=== PATIENT | female | born 1995 | race Caucasian/White ===

== ENCOUNTER 2023-09-23 04:18 | Inpatient (IN) ==
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
[2023-09-23] MEDS: ALBUT/IPRATROP 3MG/0.5MG NEB 3 ML VIAL NEB STA (05:10)
[2023-09-23] MEDS: methylPREDNISolone 125 MG/2 ML VIAL IV STA (05:21)
[2023-09-23] MEDS: cefTRIAXone SODIUM 2,000 MG/50 ML BAG IV STA (05:21)
[2023-09-23 05:39] LABS: Basophils # (auto) 0.02 K/uL (0.00-0.20); Basophils % (auto) 0.3 %; Eosinophils # (auto) 0.35 K/uL (0.00-0.50); Eosinophils % (auto) 4.7 %; Hematocrit (blood only) 32.6 % (37.0-47.0); Hemoglobin 9.2 g/dl (12.0-16.0); Immature Granulocytes # (auto) 0.01 K/uL (0.01-0.20); Immature Granulocytes % (auto) 0.1 %; Lymphocytes # (auto) 1.27 K/uL (1.20-3.40); Lymphocytes % (auto) 17.2 %; Mean Corpuscular Hemoglobin 21.1 pg (25.0-34.0); Mean Corpuscular Hgb Conc 28.2 g/dL (32.0-36.0); Mean Corpuscular Volume 74.8 fL (80.0-100.0); Mean Platelet Volume 9.6 fL (9.4-12.4); Monocytes # (auto) 0.76 K/uL (0.11-0.59); Monocytes % (auto) 10.3 %; Neutrophils # (auto) 4.98 K/uL (1.40-6.50); Neutrophils % (auto) 67.4 %; Platelet Count 253 K/uL (130-400); RDW Coefficient of Variation 26.5 % (11.5-14.5); RDW Standard Deviation 69.5 fL (36.4-46.3); Red Blood Count 4.36 M/uL (4.20-5.40); White Blood Count 7.39 K/ul (4.8-10.8)
[2023-09-23 05:52] LABS: BUN Creatinine Ratio 16.9 (10-20); Calcium 9.2 mg/dl (8.6-10.3); Creatinine Clr Calc Pharmacy 201.7 ml/min; Est GFR (African American) 136.2 ml/min; Est GFR (Non-African American) 117.6 ml/min; Potassium 3.2 mmol/L (3.5-5.1)
[2023-09-23 05:58] LABS: Anisocytosis Present; Polychromasia 1+
[2023-09-23 06:00] LABS: Troponin I High Sensitivity 5.8 pg/ml (0-14)
[2023-09-23 06:03] LABS: Partial Thromboplastin Time 26 Seconds (21-31); Prothrombin Time 10.7 Seconds (9.0-12.0)
--- NOTE | 2023-09-23 07:45 | XRay Report ---
XR chest 1V portable CLINICAL HISTORY: Dyspnea TECHNIQUE: Single frontal radiograph of the chest was obtained. Comparison: None available at the time of this dictation. FINDINGS: Exam is limited by underpenetration. The cardiomediastinal silhouette is normal. The lungs are clear. No evidence of pleural effusion or pneumothorax. IMPRESSION: No acute abnormalities and in particular no radiographic evidence of pneumonia. ACT 112: Negative or not required by law. Electronically signed by: Fredis Conway M.D. 09/23/2023 7:44 AM
--- NOTE | 2023-09-23 08:33 | History & Physical Report ---
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 Patient states symptoms started about 2 weeks ago. Has cough. Is bringing some bloody sputum. Had fevers, chills. Headache. Chest discomfort. Has nausea. Has diarrhea and constipation. Feeling short of breath. She was in the ER yesterday. Yesterday CTA chest showed no PE and no DVT in lower extremity. She was also found to have enterorhinovirus infection and a viral pneumonia CT scan. She was given Zithromax and inhaler and was discharged. But at home she was not feeling better so came back today. Seems to be admitted for pneumonia in the past. Hemodynamics are okay. Somewhat sleepy but arousable and answering appropriately. Acute bronchitis due to rhinovirus Mostly viral pneumonia Asthma exacerbation Empiric Rocephin and azithromycin IV Solu-Medrol 60 mg 3 times daily and taper down to her home steroids when stable Nebs [id number] and as needed Chest pain Mostly from above EKG and troponin negative Will follow serial ce If any concerns will get echo and cardiac consult Enterorhinovirus Supportive care Droplet precautions Morbid obesity Needs counseling Nutrition follow-up Nocturnal pulse ox study while in the hospital Sleep study as outpatient Hypothyroidism On high-dose Synthroid Follow TSH History of seizures On Keppra Depression On Prozac History of leukemia AML As per Patient diagnosed 4 years ago and s/p Ritauxin and Currently on prednisone 100 mg daily in 3 divided doses as per patient Follow-up with heme-onc Anemia Hemoglobin 9.2 Microcytic We will check iron studies, vitamin B12 folate levels Stool for Hemoccult Needs follow-up DVT prophylaxis Placed on Lovenox If Hemoccult positive will DC Lovenox Disposition Med/telemetry Full code History of Present Illness Chief Complaint: Shortness of breath and cough Primary Care Provider: Anna Devlin 28-year-old female with past medical history significant for asthma, depression, seizures, hypothyroidism, morbid obesity, 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 Patient states symptoms started about 2 weeks ago. Has cough. Is bringing some bloody sputum. Had fevers, chills. Headache. Chest discomfort. Has nausea. Has diarrhea and constipation. Feeling short of breath. She was in the ER yesterday. Yesterday CTA chest showed no PE and no DVT in lower extremity. She was also found to have enterorhinovirus infection and a viral pneumonia CT scan. She was given Zithromax and inhaler and was discharged. But at home she was not feeling better so came back today. Seems to be admitted for pneumonia in the past. Hemodynamics are okay. Somewhat sleepy but arousable and answering appropriately. Past medical history as mentioned above. Past surgical history. Cholecystectomy. Social history. No smoking. No alcohol. Family history. Significant for diabetes. Allergies Allergy/AdvReac Type Severity Reaction Status Date / Time acetaminophen Allergy Severe swelling Unverified 09/22/23 20:04 [From Tylenol-Codeine #3] codeine Allergy Severe swelling Unverified 09/22/23 20:04 [From Tylenol-Codeine #3] tramadol Allergy Severe swelling Unverified 09/22/23 20:04 Penicillins Allergy Intermediate Rash Unverified 09/22/23 20:04 povidone-iodine Allergy Intermediate Rash Unverified 09/22/23 20:04 [From Betadine] sulfamethoxazole Allergy Intermediate Rash Unverified 09/22/23 20:04 [From Bactrim] trimethoprim [From Bactrim] Allergy Intermediate Rash Unverified 09/22/23 20:04 Home Medications Medication Instructions Recorded Confirmed Type albuterol sulfate 90 mcg/actuation 1 inh inhalation Q6H PRN shortness 09/22/23 09/23/23 Rx aerosol inhaler of breath or wheezing #8.5 grams fluoxetine 10 mg capsule (Prozac) 10 mg PO DAILY 09/22/23 09/23/23 History levetiracetam 750 mg tablet 750 mg PO BID 09/22/23 09/23/23 History (Deyanira) levothyroxine 100 mcg tablet See Rx Instructions .Route .COMPLEX 09/22/23 09/23/23 History prednisone 50 mg tablet 0 mg PO TID 09/22/23 09/23/23 History [id number]-FA 1 mg 1 tab PO DAILY 09/22/23 09/23/23 History tablet azithromycin 250 mg tablet 0 mg PO DAILY 09/23/23 09/23/23 History Past Med/Surg History Problem List (Updated 09/22/23 @ 21:34 by Ayesha Joel MD) Acute bronchitis due to Rhinovirus (Acute) Enterovirus infection (Acute) Social History Smoking Status: Never smoker Feels Safe at Home: Yes Review of Systems Review of Systems: All systems reviewed & are unremarkable except as noted in HPI & below Physical Exam Physical Exam: General- Sleepy. not in acute distress Head- atraumatic Eyes- PERRL. ENT- oropharynx clear Neck- supple, no JVD. Lungs- clear to auscultation b/l rhonchi heard Heart- regular rhythm; no murmur, no gallop. Abdomen- normal bowel sounds, soft, nontender, no distension Extremities- no pretibial edema, no erythema seen Neuro- Sleepy but arousable, PERRL, ; no facial palsy; no dysarthria; moves extremities Results & Data Results & Data Vital Signs (Past 12 Hours) Vital Signs Temp Pulse Pulse Resp BP BP Pulse Ox 09/23/23 07:24 94 09/23/23 07:21 110 H 20 154/110 H 94 09/23/23 04:29 37.1 C 110 H 111/76 94 O2 Del Method 09/23/23 07:24 Room Air 09/23/23 07:21 Room Air 09/23/23 04:29 Room Air Diagnostic Findings Laboratory Results WBC 7.39 K/ul (4.8-10.8) 09/23/23 05:08 RBC 4.36 M/uL (4.20-5.40) 09/23/23 05:08 Hgb 9.2 g/dl (12.0-16.0) L 09/23/23 05:08 Hct 32.6 % (37.0-47.0) L 09/23/23 05:08 MCV 74.8 fL (80.0-100.0) L 09/23/23 05:08 MCH 21.1 pg (25.0-34.0) L 09/23/23 05:08 MCHC 28.2 g/dL (32.0-36.0) L 09/23/23 05:08 RDW Std Deviation 69.5 fL (36.4-46.3) H 09/23/23 05:08 RDW Coeff of Derrick 26.5 % (11.5-14.5) H 09/23/23 05:08 Plt Count 253 K/uL (130-400) 09/23/23 05:08 MPV 9.6 fL (9.4-12.4) 09/23/23 05:08 Immature Gran % (Auto) 0.1 % 09/23/23 05:08 Neut % (Auto) 67.4 % 09/23/23 05:08 Lymph % (Auto) 17.2 % 09/23/23 05:08 [place] % (Auto) 10.3 % 09/23/23 05:08 Eos % (Auto) 4.7 % 09/23/23 05:08 Baso % (Auto) 0.3 % 09/23/23 05:08 Neut # (Auto) 4.98 K/uL (1.40-6.50) 09/23/23 05:08 Lymph # (Auto) 1.27 K/uL (1.20-3.40) 09/23/23 05:08 [place] # (Auto) 0.76 K/uL (0.11-0.59) H 09/23/23 05:08 Eos # (Auto) 0.35 K/uL (0.00-0.50) 09/23/23 05:08 Baso # (Auto) 0.02 K/uL (0.00-0.20) 09/23/23 05:08 Immature Gran # (Auto) 0.01 K/uL (0.01-0.20) 09/23/23 05:08 Polychromasia 1+ 09/23/23 05:08 Anisocytosis Present 09/23/23 05:08 PT 10.7 Seconds (9.0-12.0) 09/23/23 05:08 INR 1.0 (0.9-1.1) 09/23/23 05:08 APTT 26 Seconds (21-31) 09/23/23 05:08 PTT Ratio 1.0 09/23/23 05:08 Sodium 139 mmol/L (136-145) 09/23/23 05:08 Potassium 3.2 mmol/L (3.5-5.1) L 09/23/23 05:08 Chloride 104 mmol/L (98-107) 09/23/23 05:08 Carbon Dioxide 27 mmol/L (21-32) 09/23/23 05:08 Anion Gap 8 (3-11) 09/23/23 05:08 BUN 12 mg/dl (6-23) 09/23/23 05:08 Creatinine 0.71 mg/dl (0.6-1.2) 09/23/23 05:08 Est Cr Clr Drug Dosing 201.7 ml/min 09/23/23 05:08 Est GFR ( Amer) 136.2 ml/min 09/23/23 05:08 Est GFR (Non-Af Amer) 117.6 ml/min 09/23/23 05:08 BUN/Creatinine Ratio 16.9 (10-20) 09/23/23 05:08 Glucose 136 mg/dl (70-99(Fasting)) H 09/23/23 05:08 Calcium 9.2 mg/dl (8.6-10.3) 09/23/23 05:08 Magnesium 2.0 mg/dl (1.7-2.4) 09/23/23 05:08 Troponin I High Sens 5.8 pg/ml (0-14) 09/23/23 05:08 Impressions Chest X-Ray 09/23/23 04:42 XR chest 1V portable CLINICAL HISTORY: Dyspnea TECHNIQUE: Single frontal radiograph of the chest was obtained. Comparison: None available at the time of this dictation. FINDINGS: Exam is limited by underpenetration. The cardiomediastinal silhouette is normal. The lungs are clear. No evidence of pleural effusion or pneumothorax. IMPRESSION: No acute abnormalities and in particular no radiographic evidence of pneumonia. ACT 112: Negative or not required by law. Electronically signed by: Fredis Conway M.D. 09/23/2023 7:44 AM ECG Additional Comments: ECG. Normal sinus rhythm rate of 96. Possible left atrial enlargement. Right axis deviation. QTc 444. Code Status & VTE Plan VTE Prophylaxis Plan VTE Prophylaxis will be ordered: Yes
[2023-09-23] MEDS: POTASSIUM CHLORIDE CRTAB 20 MEQ TABCR PO STA (09:31)
--- NOTE | 2023-09-23 10:25 | Hospitalist Progress Note ---
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 Patient states symptoms started about 2 weeks ago. Is bringing up some bloody sputum. Had fevers, chills. Headache. Chest discomfort. Has nausea. Has diarrhea and constipation. Feeling short of breath. She was in the ER day before admission. Yesterday CTA chest showed no PE and no DVT in lower extremity. She was also found to have enterorhinovirus infection and a viral/bacterial pneumonia on CT scan with noted pulmonay HTN. She was given Zithromax and inhaler and was discharged. But at home she was not feeling better so came back today. Enterovirus/Rhinovirus infection Possible Pneumonia CTA chest from 09/21 noting no PE, possible viral/atypical pneumonia and "Enlarged main pulmonary suggesting pulmonary arterial hypertension." Empiric Rocephin and azithromycin IV Solu-Medrol 60 mg 3 times daily and taper down to her home steroids when stable Nebs [id number] and as needed Supportive care as needed Consider pulmonology input Pulmonary Hypertension Noted on CT Echo pending Chest pain Mostly from above EKG and troponin negative Continue to monitor- doubt ACS Iron Deficiency Anemia Hemoglobin 9.2 Microcytic Iron studies indicating iron deficiency vitamin B12 folate levels normal Stool for Hemoccult s/p IV Venofer on 09/22 Needs follow-up Morbid obesity Needs counseling Nutrition follow-up Nocturnal pulse ox study while in the hospital Sleep study as outpatient Hypothyroidism On high-dose Synthroid Follow TSH History of seizures On Keppra Depression On Prozac History of leukemia AML As per Patient diagnosed 4 years ago and s/p Ritauxin Currently on prednisone 100 mg daily in 3 divided doses as per patient States that her heme-onc is in [place] and she recently moved to [place] Follow-up with heme-onc Diet: HH DVT prophylaxis: Placed on Lovenox. If Hemoccult positive will DC Lovenox Dispo: Home once medically stable Subjective pt was seen while still down in the ED. States that she was feeling better in terms of her breathing ability wanted to get out of the ED (go up to a room) but otherwise denied acute concerns. Review of Systems Review of Systems: All systems reviewed & are unremarkable except as noted in Subjective Physical Exam Physical Exam: General: Alert, oriented. No acute distress Skin: No noted rashes or bruises Psych: Appropriate mood and affect Neuro: No gross deficits while laying in the bed HEENT: NC/AT CV: RRR Resp: Breath sounds decreased bilaterally, slight increase effort of breathing. Abdomen: Soft, nontender Extremities:edema in lower extremities bilaterally. Results & Data Results & Data Vital Signs (Past 12 Hours) Vital Signs Temp Pulse Pulse Resp BP BP Pulse Ox 09/23/23 09:54 115 H 09/23/23 07:24 94 09/23/23 07:21 110 H 20 154/110 H 94 09/23/23 04:29 37.1 C 110 H 111/76 94 O2 Del Method 09/23/23 09:54 09/23/23 07:24 Room Air 09/23/23 07:21 Room Air 09/23/23 04:29 Room Air Diagnostic Findings Chest X-Ray 09/23/23 04:42 XR chest 1V portable CLINICAL HISTORY: Dyspnea TECHNIQUE: Single frontal radiograph of the chest was obtained. Comparison: None available at the time of this dictation. FINDINGS: Exam is limited by underpenetration. The cardiomediastinal silhouette is normal. The lungs are clear. No evidence of pleural effusion or pneumothorax. IMPRESSION: No acute abnormalities and in particular no radiographic evidence of pneumonia. ACT 112: Negative or not required by law. Electronically signed by: Fredis Conway M.D. 09/23/2023 7:44 AM
[2023-09-23] MEDS ORDERED: LEVALBUTEROL 1.25 MG/3 ML NEB NEB PRN (14:23)
[2023-09-23] MEDS ORDERED: ALBUTEROL HFA 8 GM INHALER INH PRN (14:23)
[2023-09-23] MEDS ORDERED: NITROGLYCERIN SL 0.4 MG/TAB TAB SL PRN (14:23)
[2023-09-23] MEDS ORDERED: methylPREDNISolone 125 MG/2 ML VIAL IV SCH (14:23)
[2023-09-23] MEDS: LEVALBUTEROL 1.25 MG/3 ML NEB NEB SCH (14:45)
[2023-09-23] MEDS: PRENATAL VITAMIN 1 TAB PO SCH (15:25)
[2023-09-23] MEDS: methylPREDNISolone 60 MG in SYRINGE 0 ML IV SCH (15:25)
[2023-09-23] MEDS: FLUoxetine HCL 10 MG CAP PO SCH (15:25)
[2023-09-23] MEDS: SODIUM CHLORIDE 0.9% 1,000 ML IV SCH ×2 (15:26→19:33)
[2023-09-23] MEDS: ENOXAPARIN INJ 40 MG/0.4 ML SYR SQ SCH (15:27)
[2023-09-23] MEDS: AZITHROMYCIN 250 MG TAB PO ONE (15:45)
[2023-09-23] MEDS: levETIRAcetam 250 MG TAB PO SCH (15:45)
[2023-09-23 16:48] LABS: Folate (Folic Acid),Ser orPlas 10.79 ng/ml (>5.38)
[2023-09-23] MEDS: IRON SUCROSE 200 MG in 0.9 % SODIUM CHLORIDE 100 ML IV ONE (18:32)
[2023-09-23] MEDS: PANTOprazole 40 MG in SYRINGE 0 ML IV SCH (19:33)
[2023-09-23] MEDS: LEVOTHYROXINE SODIUM 100 MCG TABLET PO SCH (19:35)
--- NOTE | 2023-09-23 20:00 | Electrocardiogram Report ---
Test Reason : Blood Pressure : / mmHG Vent. Rate : 096 BPM Atrial Rate : 096 BPM P-R Int : 168 ms QRS Dur : 082 ms QT Int : 352 ms P-R-T Axes : 034 120 006 degrees QTc Int : 444 ms Normal sinus rhythm Possible Left atrial enlargement Right axis deviation Cannot rule out Anterior infarct (cited on or before 22-SEP-2023) Abnormal ECG When compared with ECG of 22-SEP-2023 18:15, (unconfirmed) Questionable change in initial forces of Anterior leads Confirmed by Melvin Castillo ([id number]) on 09/23/2023 7:59:56 PM Referred By: REFERRED SELF Confirmed By:Melvin Castillo
[2023-09-24 02:22] LABS: Hematocrit (blood only) 35.2 % (37.0-47.0); Mean Corpuscular Hemoglobin 21.5 pg (25.0-34.0); Mean Corpuscular Hgb Conc 28.4 g/dL (32.0-36.0); Mean Corpuscular Volume 75.7 fL (80.0-100.0); Mean Platelet Volume 9.6 fL (9.4-12.4); Platelet Count 296 K/uL (130-400); RDW Coefficient of Variation 26.5 % (11.5-14.5); RDW Standard Deviation 70.2 fL (36.4-46.3); Red Blood Count 4.65 M/uL (4.20-5.40); White Blood Count 10.04 K/ul (4.8-10.8)
[2023-09-24 02:53] LABS: Anisocytosis Present; BUN Creatinine Ratio 18.2 (10-20); Basophils # (auto) 0.01 K/uL (0.00-0.20); Basophils % (auto) 0.1 %; Calcium 9.6 mg/dl (8.6-10.3); Est GFR (African American) 141.3 ml/min; Est GFR (Non-African American) 121.9 ml/min; Immature Granulocytes # (auto) 0.15 K/uL (0.01-0.20); Immature Granulocytes % (auto) 1.5 %; Lymphocytes # (auto) 0.46 K/uL (1.20-3.40); Lymphocytes % (auto) 4.6 %; Monocytes # (auto) 0.22 K/uL (0.11-0.59); Monocytes % (auto) 2.2 %; Neutrophils % (auto) 91.6 %; Polychromasia 1+; Potassium 4.2 mmol/L (3.5-5.1); Thyroid Stimulating Hormone 2.893 uIu/ml (0.300-4.500)
[2023-09-24] MEDS: cefTRIAXone SODIUM 2,000 MG/50 ML BAG IV SCH (04:36)
[2023-09-24] MEDS: LEVOTHYROXINE SODIUM 150 MCG TABLET PO SCH (05:20)
--- NOTE | 2023-09-24 08:26 | Electrocardiogram Report ---
Test Reason : Blood Pressure : / mmHG Vent. Rate : 057 BPM Atrial Rate : 057 BPM P-R Int : 170 ms QRS Dur : 086 ms QT Int : 410 ms P-R-T Axes : 021 073 013 degrees QTc Int : 399 ms Sinus bradycardia with sinus arrhythmia Normal ECG When compared with ECG of 23-SEP-2023 04:50, Vent. rate has decreased BY 39 BPM Confirmed by Alvino Pat ([id number] on 09/24/2023 8:25:26 AM Referred By: REFERRED SELF Confirmed By:Alvino Pat
--- NOTE | 2023-09-24 09:22 | Discharge Summary ---
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 Patient states symptoms started about 2 weeks ago. Is bringing up some bloody sputum. Had fevers, chills. Headache. Chest discomfort. Has nausea. Has diarrhea and constipation. Feeling short of breath. She was in the ER day before admission. That day CTA chest showed no PE and no DVT in lower extremity. She was also found to have enterorhinovirus infection and a possible viral/bacterial pneumonia on CT scan with noted pulmonary HTN. She was given Zithromax and an inhaler and was discharged. But at home she was not feeling better so came back to the ER on 09/22 and was subsequently admitted. Pt was treated for pneumonia with empiric Rocephin and azithromycin, IV steroids and nebulizer support. She had complaints of hemoptysis and hematemesis while hospitalized with a noted microcytic anemia. She was started on IV ppi and her iron deficiency anemia was supplemented with IV venofer. It was noted on CT scan that she had pulmonary HTN and she had an echocardiogram completed which when subsequently read did not note pulmonary HTN. On 09/23, pt stated that she was leaving AMA and did not want to discuss it further. The risks of leaving AMA at this time (including worsening difficulty breathing, untreated pneumonia as well as a possible GI Bleed that could lead to ) were discussed with the patient and she was adamant that she was leaving. She signed required AMA paperwork. She left before evaluation by GI. Close PCP followup recommended. She was treated for the following: Enterovirus/Rhinovirus infection Possible Pneumonia CTA chest from 09/21 noting no PE, possible viral/atypical pneumonia and "Enlarged main pulmonary suggesting pulmonary arterial hypertension." Empiric Rocephin and azithromycin IV Solu-Medrol 60 mg 3 times daily and taper down to her home steroids when stable Nebs [id number] and as needed Supportive care as needed Consider pulmonology input Pt left AMA the next day after admission Close PCP followup recommended. Pulmonary Hypertension Noted on CT Echo noting EF 60-65%, NO pulmonary hypertension, trace TR Chest pain Mostly from above EKG and troponin negative Doubt ACS Iron Deficiency Anemia hemoptysis hematemesis Hemoglobin 9.2,Microcytic Iron studies indicating iron deficiency vitamin B12 folate levels normal Stool for Hemoccult s/p IV Venofer on 09/22 Monitored H/H in setting of IV steroids and concern for bloody sputum and vomitus GI was consulted for further evaluation Pt however left AMA before further evaluation Close PCP follow-up recommended Morbid obesity Needs counseling Nutrition follow-up Nocturnal pulse ox study, Sleep study as outpatient Close PCP followup Hypothyroidism On high-dose Synthroid Follow TSH PCP followup History of seizures On Keppra Depression On Prozac History of leukemia AML As per Patient diagnosed 4 years ago and s/p Ritauxin Currently on prednisone 100 mg daily in 3 divided doses as per patient States that her heme-onc is in [place] and she recently moved to [place] Follow-up with heme-onc Notes For Next Care Provider Pt left AMA- Close PCP followup recommended Medication Changes From Visit None- pt left AMA. PCP followup recommended Admission HPI Per Admitting Provider 28-year-old female with past medical history significant for asthma, depression, seizures, hypothyroidism, morbid obesity, diagnosed with leukemia AML 4 years ago s/p Rituxan therapy and currently on prednisone as per patient total 100 mg daily and that her heme-onc is in [place] and she recently moved to [place] comes because of shortness of breath and cough and weakness. Patient states symptoms started about 2 weeks ago. Has cough. Is bringing some bloody sputum. Had fevers, chills. Headache. Chest discomfort. Has nausea. Has diarrhea and constipation. Feeling short of breath. She was in the ER yesterday. Yesterday CTA chest showed no PE and no DVT in lower extremity. She was also found to have enterorhinovirus infection and a viral pneumonia CT scan. She was given Zithromax and inhaler and was discharged. But at home she was not feeling better so came back today. Seems to be admitted for pneumonia in the past. Hemodynamics are okay. Somewhat sleepy but arousable and answering appropriately. Past medical history as mentioned above. Past surgical history. Cholecystectomy. Social history. No smoking. No alcohol. Family history. Significant for diabetes. Admission Exam Per Admitting Provider General- Sleepy. not in acute distress Head- atraumatic Eyes- PERRL. ENT- oropharynx clear Neck- supple, no JVD. Lungs- clear to auscultation b/l rhonchi heard Heart- regular rhythm; no murmur, no gallop. Abdomen- normal bowel sounds, soft, nontender, no distension Extremities- no pretibial edema, no erythema seen Neuro- Sleepy but arousable, PERRL, ; no facial palsy; no dysarthria; moves extremities Discharge Exam General: Alert, oriented. No acute distress Skin: No noted rashes or bruises Psych: Appropriate mood and affect Neuro: No gross deficits while sitting in the bed HEENT: NC/AT Resp: No increased effort of breathing Extremities: edema in lower extremities bilaterally. Updated Medication List Medication Instructions Recorded Confirmed Type albuterol sulfate 90 mcg/actuation 1 inh inhalation Q6H PRN shortness 09/22/23 09/23/23 Rx aerosol inhaler of breath or wheezing #8.5 grams fluoxetine 10 mg capsule (Prozac) 10 mg PO DAILY 09/22/23 09/23/23 History levetiracetam 750 mg tablet 750 mg PO BID 09/22/23 09/23/23 History (Keppra) levothyroxine 100 mcg tablet See Rx Instructions .Route .COMPLEX 09/22/23 09/23/23 History prednisone 50 mg tablet 0 mg PO TID 09/22/23 09/23/23 History xhbalszl-uvy-Ra-FA 1 mg 1 tab PO DAILY 09/22/23 09/23/23 History tablet azithromycin 250 mg tablet 0 mg PO DAILY 09/23/23 09/23/23 History Hospital Stay Data Consultations 09/23/23 06:47 ED Decision to Admit Stat 09/23/23 18:26 Consult Gastroenterology Routine Diagnostic Imagining Performed Chest X-Ray 09/23/23 04:42 XR chest 1V portable CLINICAL HISTORY: Dyspnea TECHNIQUE: Single frontal radiograph of the chest was obtained. Comparison: None available at the time of this dictation. FINDINGS: Exam is limited by underpenetration. The cardiomediastinal silhouette is normal. The lungs are clear. No evidence of pleural effusion or pneumothorax. IMPRESSION: No acute abnormalities and in particular no radiographic evidence of pneumonia. ACT 112: Negative or not required by law. Electronically signed by: Fredis Conway M.D. 09/23/2023 7:44 AM Discharge Instructions Given to Patient (Per Discharging Provider) pt left against medical advice Total Time Total Time Spent Total Time Spent (In Minutes): 65
--- NOTE | 2023-09-24 12:36 | Communication Note ---
Date of Service: September 24, 2023 GI was consulted for this patient regarding "hemoptysis, anemia" however patient left against medical advice prior to our evaluation.
[2023-09-24] MEDS ORDERED: AZITHROMYCIN 250 MG TAB PO SCH (15:00)
== END 2023-09-24 09:53 | disposition left against medical advice (07) | DRG 202 ==
LOC: ED 04:18 → 2W 07:20 → EDINP 07:20 → 2W 13:52